=== PATIENT | female | born 1990 | race African-American/Black ===

== ENCOUNTER 2019-01-31 21:11 | Emergency (ER) | payer SELFPAY ==
[~2019-01-31] VITALS: Ht 172.7 cm; Wt 109.0 kg
[2019-02-01 01:04] LABS: CLARITY URINE CLEAR (CLEAR); COLOR URINE YELLOW (YELLOW); KETONES URINE TRACE (NEGATIVE); LEUKOCYTE ESTERASE URINE NEGATIVE (NEGATIVE); NITRITE URINE NEGATIVE (NEGATIVE); OCCULT BLOOD URINE NEGATIVE (NEGATIVE); PROTEIN URINE NEGATIVE (NEGATIVE); SPECIFIC GRAVITY URINE 1.023 (1.005-1.030)
[2019-02-01 01:13] LABS: *AMPHETAMINES SCREEN URINE NEGATIVE (NEGATIVE)
[2019-02-01 01:14] LABS: *BARBITURATES SCREEN URINE NEGATIVE (NEGATIVE); *BENZODIAZEPINES SCREEN URINE NEGATIVE (NEGATIVE); *COCAINE SCREEN URINE NEGATIVE (NEGATIVE); METHADONE URINE SCREEN NEGATIVE (NEGATIVE); OPIATES URINE SCREEN NEGATIVE (NEGATIVE); PHENCYCLIDINE URINE SCREEN NEGATIVE (NEGATIVE)
[2019-02-01 01:28] LABS: CANNABINOID URINE SCREEN PRESUMTIVE POSITIVE (NEGATIVE)
[2019-02-01 02:27] VITALS: BP 108/71
== END 2019-02-01 02:32 | disposition home or self-care (01) ==
LOC: ER 21:11
DX: G89.29 Other chronic pain (principal); R10.9 Unspecified abdominal pain; J45.909 Unspecified asthma, uncomplicated; F12.10 Cannabis abuse, uncomplicated; Z98.890 Other specified postprocedural states; Z92.0 Personal history of contraception
CPT/HCPCS: 80305; 81025; 99283